=== PATIENT | male | born 1945 | race Caucasian/White ===

== ENCOUNTER 2022-05-05 07:01 | Day surgery (SDC) | payer MEDICARE ==
[~2022-05-05] VITALS: Ht 177.8 cm; Wt 104.2 kg
[~2022-05-05 07:01] MED LIST: AMLO5 PO; AZOR 5-40MG; Aspir 8181 MG PO; CARV25 PO; FISH OIL 1,2001 EAC4 PO; HYDCHL25 PO; METF500 PO; NEBI10 PO; NIAC500 PO; PIOG15 PO; SITA100T2 PO; Trilipix135 MG PO; Zocor20 MG PO; [UNRECOGNIZED DRUG - OTHER]
--- NOTE | 2022-05-05 08:22 | NUR ---
05/05/[address] NOTIFIED OF ALLERGY TO CIPRO. OR STAFF NOTIFIED OF DR'S PLAN TO OMIT THE MOXIFLOXACIN DURING SURGERY. PT TEACHING PROVIDED TO PT R/T SURGERY AND POST OP UNTIL ALL QUESTIONS ANSWERED.
--- NOTE | 2022-05-05 08:31 | NUR ---
05/05/22 0831 ANGELIKA MILLER NO MOXIFLOXACIN USED D/T PATIENTS CIPRO ALLERGY
== END 2022-05-05 09:01 | disposition home or self-care (01) ==
LOC: ORSCSDS 07:01
PROVIDERS: Ophthalmology
PROC: 08RK3JZ Replacement of Left Lens with Synthetic Substitute, Percutaneous Approach (ICD-10-PCS; principal; 2022-05-05 08:30)
DX: H25.13 Age-related nuclear cataract, bilateral (principal); I10 Essential (primary) hypertension; E11.9 Type 2 diabetes mellitus without complications; E78.00 Pure hypercholesterolemia, unspecified; Z95.0 Presence of cardiac pacemaker; E66.9 Obesity, unspecified; Z68.33 Body mass index [BMI] 33.0-33.9, adult; F17.210 Nicotine dependence, cigarettes, uncomplicated; Z79.82 Long term (current) use of aspirin; Z79.84 Long term (current) use of oral hypoglycemic drugs; Z79.899 Other long term (current) drug therapy
CPT/HCPCS: 82947; J2001; J2250; J3010; J3301; J7030; J7040; V2632

== ENCOUNTER 2022-07-21 09:45 | Day surgery (SDC) | payer MEDICARE ==
[~2022-07-21] VITALS: Ht 180.3 cm; Wt 102.7 kg
--- NOTE | 2022-07-21 10:13 | NUR ---
07/21/22 1013 Lynsey Gutierrez CALL LIGHT WITHIN REACH. TETRACAINE AT 1005 PLEDGETT AT 1007 IN RIGHT EYE
--- NOTE | 2022-07-21 11:02 | NUR ---
07/21/22 1102 Marisol Vegas IV DISCONTINUED WITH 300 LC.
== END 2022-07-21 11:07 | disposition home or self-care (01) ==
LOC: ORSCSDS 09:45
PROVIDERS: Ophthalmology
PROC: 08RJ3JZ Replacement of Right Lens with Synthetic Substitute, Percutaneous Approach (ICD-10-PCS; principal; 2022-07-21 11:00)
DX: H25.11 Age-related nuclear cataract, right eye (principal); Z96.1 Presence of intraocular lens; R01.1 Cardiac murmur, unspecified; I10 Essential (primary) hypertension; E11.9 Type 2 diabetes mellitus without complications; F17.210 Nicotine dependence, cigarettes, uncomplicated; E66.9 Obesity, unspecified; Z68.32 Body mass index [BMI] 32.0-32.9, adult; Z79.82 Long term (current) use of aspirin; Z79.84 Long term (current) use of oral hypoglycemic drugs; Z79.899 Other long term (current) drug therapy
CPT/HCPCS: 82947; J2001; J2250; J3010; J3301; J7040; V2632